=== PATIENT | female | born 1980 | race Caucasian/White ===

== ENCOUNTER 2019-02-06 10:08 | Emergency (ER) | payer OTHER, SELFPAY ==
[2019-02-06 10:13] VITALS: BP 113/64; PULSE 87; RESP 16; TEMP 36.5; O2SAT 97; BMI 23.3
[2019-02-06 11:11] VITALS: BP 107/88; PULSE 77; RESP 18; O2SAT 98
[2019-02-06] MEDS: SODIUM CHLORIDE 0.9% 1,000 ML 1000 ML IV ×2 (11:12→12:07)
[2019-02-06] MEDS: ONDANSETRON 4 MG/2 ML INJ IV ×2 (11:12→12:01)
[2019-02-06 11:34] LABS: Add Manual Diff / Slide Review NO; Basophils Absolute Auto 0 /uL (0-100); Basophils Percent Auto 0.4 % (0-2); Eosinophils Absolute Auto 0 /uL (0-450); Hematocrit 38.2 % (36-46); Lymphocytes Absolute Auto 500 /uL (1100-4500); Lymphocytes Percent Auto 4.3 % (25-40); Mean Corpuscular HGB Conc 34.1 % (30-36); Mean Corpuscular Hemoglobin 30.9 PG (26-34); Mean Corpuscular Volume 90.7 fL (80-100); Monocytes Absolute Auto 600 /uL (0-900); Monocytes Percent Auto 4.5 % (3-14); Neutrophils Absolute Auto 11600 /uL (1500-7000); Neutrophils Percent Auto 90.8 % (50-75); Platelet Count 263 X10^3/uL (150-400); Red Blood Cell Count 4.21 X10^6/uL (4.0-5.2); Red Cell Distribution Width 12.4 % (11.6-14.8); White Blood Cell Count 12.7 X10^3/uL (4.5-11.0)
[2019-02-06 11:45] LABS: Alanine Aminotransferase 18 IU/L (9-52); Albumin Globulin Ratio 1.5 (1.0-2.8); Alkaline Phosphatase 38 U/L (38-126); Aspartate Aminotransferase 18 IU/L (14-36); Blood Urea Nitrogen 14 mg/dL (7-17); Calcium 8.4 mg/dL (8.4-10.2); Carbon Dioxide 28 mmol/L (22-32); Chloride 100 mmol/L (98-107); Estimated Glomerular Filt Rate > 60.0 mL/min (>60); Globulin 2.7 g/dL (1.7-4.1); Glucose 102 mg/dL (70-100); HEMOLYSIS < 15 (0-50); Lipase 38 U/L (23-300); Potassium 3.2 mmol/L (3.4-5.1); Sodium 138 mmol/L (137-145); Total Protein 6.7 g/dL (6.3-8.2)
--- NOTE | 2019-02-06 11:47 | ED_ITS ---
HPI - Nausea/Vomiting/Diarrhea <Mack OlveraMarineSuirnderjessy [facility] - Last Filed: 02/06/19 23:42> General Chief complaint: Nausea/Vomiting/Diarrhea Stated complaint: Vomiting for 12 hours straight Time Seen by Provider: 02/06/19 11:31 Source: patient Mode of arrival: ambulatory Limitations: no limitations History of Present Illness HPI Narrative: This is a 38-year-old female, nonsmoker, who presents with multiple and frequent non bloody, bilious emesis since 10:00 p.m. last night with several episodes of diarrhea since 3:00 a.m. She reports the nausea and vomiting water so severe that she was unable to tolerate fluids given in small amounts. She felt dehydrated and and complains of headache and had voided once his the onset of the diarrhea and vomiting. She reports her legs are feeling heavy. She also had chills but no fever. She reports the symptoms started 30 minutes after eating salmon dinner and raw blue cheese. She always had sensitive stomach and other family members are okay. She traveled to [place] about 2 months ago but did not get sick after hours and she denies using recent antibiotic medications. Her last LMP was 2 weeks ago and reports very highly unlikely she is . Related Data Home Medications Medication Instructions Recorded Confirmed PNV cmb#95-ferrous fumarate-FA 1 tab PO DAILY 02/06/19 02/06/19 [] albuterol sulfate 1 puff INHALATION PRN PRN 02/06/19 02/06/19 Previous Rx's Medication Instructions Recorded ondansetron 4 mg PO Q4H PRN #14 tab 02/06/19 Allergies Allergy/AdvReac Type Severity Reaction Status Date / Time No Known Drug Allergies Allergy Verified 02/06/19 10:13 Review of Systems <Mack OlveraMarineSurinderjessy [facility] - Last Filed: 02/06/19 23:42> Review of Systems General: See HPI HEENT: Denies sinus pain, ear pain, sore throat, difficulty swallowing, dizziness. Respiratory: Denies dyspnea, cough, wheezing, hemoptysis, sputum. Cardiovascular: Denies chest pain, palpitations, orthopnea, edema. Gastrointestinal: See HPI : Denies dysuria, frequency, incontinence, hematuria, urinary retention. Musculoskeletal: Denies weakness, joint pain or bony pain. Skin: Denies rash, skin lesions, or other. Neurologic: Reports leg heaviness. Denies weakness, headache, numbness, change in speech, confusion, seizures, incoordination. Psychiatric: No concerning psychosocial issues. 12-point review of systems is negative except for those stated above. PFSH <VINICIO Fraser - Last Filed: 02/06/19 23:42> Social History Smoking Status: Never smoker Social History (Updated 02/06/19 @ 23:24 by VINICIO Fraser) Smoking Status: Never smoker alcohol intake: current substance use type: does not use Exam <VINICIO Fraser - Last Filed: 02/06/19 23:42> Narrative Exam Narrative: GEN: Alert, oriented x 3, well appearing and nourished, and in no acute distress. Head: Normal cephalic, atraumatic. No scalp or temporal tenderness, palpable mass or rash. EYES: Pupils are equal, round, and reactive to light and accommodation. Extraocular muscles are intact bilaterally. There is no subconjunctival hemorrhage, exudate and sclera non-icteric. ENT: Nose without bleeding, purulent discharge. Mucous membrane dry, no mucosal lesion. Throat without erythema, tonsillar hypertrophy or exudate. Uvula in midline, airway patent. Neck: Trachea in midline. No JVD, non-tender without lymphadenopathy. No masses or thyroid megaly. Supple, non-tender and no meningeal signs. CARDIAC: Normal regular rate and rhythm without murmurs, gallops, or rubs. No chest wall tenderness. No peripheral edema, cyanosis or pallor. Capillary refill is less than 2 seconds. RESPIRATORY: Lungs are cleat to auscultate bilaterally. No cough, wheezes, rales, or rhonchi. No stridor, respiratory distress, increase work of breathing, or accessary muscle used. ABD: Abdomen soft, tender to palpate in mid upper abdomen and LLQ and non- distended. No guarding or rebound tenderness to palpate. Bowel sounds are normal in all 4 quadrants. There is no palpable masses or organomegaly. EXT: Full painless ROM of all extremities with no loss of sensation, strength, effusion or edema. SKIN: Warm, dry, normal color for patient. No erythema, lesions or rash. BACK: Nontender without deformity or crepitance. No flank tenderness. NEUROLOGICAL: Alert and oriented to place, time and person. Sensation and motor function intact bilaterally. No facial droops, dysphasia. PSYCHIATRIC: Good judgement and reason, without hallucinations, abnormal affect or abnormal behaviors during the examination. Initial Vital Signs Initial Vital Signs: Vital Signs Temperature 97.7 F 02/06/19 10:13 Pulse Rate 87 02/06/19 10:13 Respiratory Rate 16 02/06/19 10:13 Blood Pressure 113/64 02/06/19 10:13 Pulse Oximetry 97 02/06/19 10:13 <Oxana Cristobal DO - Last Filed: 02/08/19 18:01> Initial Vital Signs Initial Vital Signs: Vital Signs Temperature 97.7 F 02/06/19 10:13 Pulse Rate 87 02/06/19 10:13 Respiratory Rate 16 02/06/19 10:13 Blood Pressure 113/64 02/06/19 10:13 Pulse Oximetry 97 02/06/19 10:13 Course <VINICIO Fraser - Last Filed: 02/06/19 23:42> Orders Ordered: Discontinued Medications Sodium Chloride (Normal Saline 0.9%) 1,000 mls @ 1,000 mls/hr IV BOLUS ONE Stop: 02/06/19 11:53 Last Infusion: 02/06/19 12:07 Dose: 0 mls/hr Admin: 02/06/19 11:12 Dose: 1,000 mls/hr Sodium Chloride (Normal Saline 0.9%) 1,000 mls @ 1,000 mls/hr IV BOLUS ONE Stop: 02/06/19 12:45 Last Infusion: 02/06/19 13:31 Dose: 0 mls/hr Admin: 02/06/19 12:07 Dose: 1,000 mls/hr Ketorolac Tromethamine (Toradol) 30 mg IV NOW ONE Stop: 02/06/19 11:48 Last Admin: 02/06/19 12:00 Dose: 30 mg Ondansetron HCl (Zofran) 4 mg IV NOW ONE Stop: 02/06/19 10:55 Last Admin: 02/06/19 11:12 Dose: 4 mg Ondansetron HCl (Zofran) 4 mg IV NOW ONE Stop: 02/06/19 11:47 Last Admin: 02/06/19 12:01 Dose: 4 mg Pantoprazole Sodium (Protonix) 40 mg IV NOW ONE Stop: 02/06/19 11:48 Last Admin: 02/06/19 12:01 Dose: 40 mg Potassium Chloride (Klor-Con M20) 40 meq PO NOW ONE Stop: 02/06/19 11:48 Last Admin: 02/06/19 14:18 Dose: 40 meq Potassium Chloride (Potassium Chloride) 40 meq PO NOW ONE Stop: 02/06/19 14:42 Last Admin: 02/06/19 14:44 Dose: 40 meq Vital Signs - 8 hr 02/06/19 10:13 02/06/19 11:11 02/06/19 12:10 Temperature 97.7 F Pulse Rate 87 77 70 Respiratory Rate 16 18 17 Blood Pressure 113/64 Blood Pressure [Right Arm] 107/88 106/60 Pulse Oximetry 97 98 02/06/19 13:54 Temperature Pulse Rate 82 Respiratory Rate 16 Blood Pressure Blood Pressure [Right Arm] 102/60 Pulse Oximetry 98 <Oxana Cristobal DO - Last Filed: 02/08/19 18:01> Orders Ordered: Discontinued Medications Sodium Chloride (Normal Saline 0.9%) 1,000 mls @ 1,000 mls/hr IV BOLUS ONE Stop: 02/06/19 11:53 Last Infusion: 02/06/19 12:07 Dose: 0 mls/hr Admin: 02/06/19 11:12 Dose: 1,000 mls/hr Sodium Chloride (Normal Saline 0.9%) 1,000 mls @ 1,000 mls/hr IV BOLUS ONE Stop: 02/06/19 12:45 Last Infusion: 02/06/19 13:31 Dose: 0 mls/hr Admin: 02/06/19 12:07 Dose: 1,000 mls/hr Ketorolac Tromethamine (Toradol) 30 mg IV NOW ONE Stop: 02/06/19 11:48 Last Admin: 02/06/19 12:00 Dose: 30 mg Ondansetron HCl (Zofran) 4 mg IV NOW ONE Stop: 02/06/19 10:55 Last Admin: 02/06/19 11:12 Dose: 4 mg Ondansetron HCl (Zofran) 4 mg IV NOW ONE Stop: 02/06/19 11:47 Last Admin: 02/06/19 12:01 Dose: 4 mg Pantoprazole Sodium (Protonix) 40 mg IV NOW ONE Stop: 02/06/19 11:48 Last Admin: 02/06/19 12:01 Dose: 40 mg Potassium Chloride (Klor-Con M20) 40 meq PO NOW ONE Stop: 02/06/19 11:48 Last Admin: 02/06/19 14:18 Dose: 40 meq Potassium Chloride (Potassium Chloride) 40 meq PO NOW ONE Stop: 02/06/19 14:42 Last Admin: 02/06/19 14:44 Dose: 40 meq Vital Signs - 8 hr 02/06/19 10:13 02/06/19 11:11 02/06/19 12:10 Temperature 97.7 F Pulse Rate 87 77 70 Respiratory Rate 16 18 17 Blood Pressure 113/64 Blood Pressure [Right Arm] 107/88 106/60 Pulse Oximetry 97 98 02/06/19 13:54 Temperature Pulse Rate 82 Respiratory Rate 16 Blood Pressure Blood Pressure [Right Arm] 102/60 Pulse Oximetry 98 MDM - Nausea/Vomiting/Diarrhea <Mack VINICIO Longoria - Last Filed: 02/06/19 23:42> Differential Diagnosis Likely food poisoning, gastroenteritis, dehydration and other (hypokalemai) Medical Records Attestation: I reviewed the patient's medical records. Lab Data Attestation: I reviewed the patient's lab results. Result diagrams: 02/06/19 11:25 02/06/19 11:25 Lab Results 02/06/19 02/06/19 02/06/19 Range/Units 11:25 11:25 11:25 WBC 12.7 H (4.5-11.0) X10^3/uL RBC 4.21 (4.0-5.2) X10^6/uL Hgb 13.0 (12.0-16.0) g/dL Hct 38.2 (36-46) % MCV 90.7 (80-100) fL MCH 30.9 (26-34) PG MCHC 34.1 (30-36) % RDW 12.4 (11.6-14.8) % Plt Count 263 (150-400) X10^3/uL Neut % (Auto) 90.8 H (50-75) % Lymph % (Auto) 4.3 L (25-40) % Hardeman % (Auto) 4.5 (3-14) % Eos % (Auto) 0.0 L (2-4) % Baso % (Auto) 0.4 (0-2) % Neut # (Auto) 48697 H (4363-1721) /uL Lymph # (Auto) 500 L (5052-8449) /uL Hardeman # (Auto) 600 (0-900) /uL Eos # (Auto) 0 (0-450) /uL Baso # (Auto) 0 (0-100) /uL PT 10.9 (10.1-12.7) SECONDS INR 0.9 (0.9-1.3) APTT 26 L (26.4-36.2) SECONDS Sodium 138 (137-145) mmol/L Potassium 3.2 L (3.4-5.1) mmol/L Chloride 100 (98-107) mmol/L Carbon Dioxide 28 (22-32) mmol/L BUN 14 (7-17) mg/dL Creatinine 0.40 L (0.52-1.04) mg/dL Estimated GFR > 60.0 (>60) mL/min BUN/Creatinine Ratio 35.0 H (6-22) Glucose 102 H (70-100) mg/dL Calcium 8.4 (8.4-10.2) mg/dL Total Bilirubin 1.0 (0.2-1.3) mg/dL AST 18 (14-36) IU/L ALT 18 (9-52) IU/L Alkaline Phosphatase 38 (38-126) U/L Total Protein 6.7 (6.3-8.2) g/dL Albumin 4.0 (3.5-5.0) g/dL Globulin 2.7 (1.7-4.1) g/dL Albumin/Globulin Ratio 1.5 (1.0-2.8) Lipase 38 (23-300) U/L [facility] Narrative Medical decision making narrative: This is a 38-year-old female who presents to ED with multiple episodes of vomiting and several episodes of diarrhea which started at 10:00 p.m. last night after she had salmon for dinner and rale blue cheese. She denies fever but had chills all night. She reports feel dehydrated complaining of headache and heaviness in her legs and generalized body aches. She denies blood in stool or vomit. She reports bilious vomit. Her abdomen was tender to palpate in mid upper and left lower quadrant. She reports had last LMP 2 weeks ago and is not . The patient was rehydrated with 2 L of normal saline, medicated with 2 doses of 4 mg IV Zofran for nausea, she was medicated with pantoprazole 40 mg IV for abdominal discomfort from excessive vomiting, and Ketoralac 30 mg IV was administered for generalized body aches. Mild elevated WBC is 12.7 and neutrophil as 90.8. CMP showed some mild hypokalemia at 3.2, elevated BUN/creatinine ratio at 35 with normal LFTs and lipase. The patient was able to tolerate liquid potassium chloride 40 mEq prior to DC to home along small sips of clear liquids. Patient was DC to home with Zofran for as needed nausea and vomiting. The patient was advised to rehydrate herself with small sips of clear liquid and to advance to bland diet as she tolerates. The findings were discussed and return precautions were reviewed with patient. No further questions expressed by patient. <Oxana Cristobal, DO - Last Filed: 02/08/19 18:01> Lab Data Lab Results 02/06/19 02/06/19 02/06/19 Range/Units 11:25 11:25 11:25 WBC 12.7 H (4.5-11.0) X10^3/uL RBC 4.21 (4.0-5.2) X10^6/uL Hgb 13.0 (12.0-16.0) g/dL Hct 38.2 (36-46) % MCV 90.7 (80-100) fL MCH 30.9 (26-34) PG MCHC 34.1 (30-36) % RDW 12.4 (11.6-14.8) % Plt Count 263 (150-400) X10^3/uL Neut % (Auto) 90.8 H (50-75) % Lymph % (Auto) 4.3 L (25-40) % Hardeman % (Auto) 4.5 (3-14) % Eos % (Auto) 0.0 L (2-4) % Baso % (Auto) 0.4 (0-2) % Neut # (Auto) 97641 H (5172-6872) /uL Lymph # (Auto) 500 L (7589-1515) /uL Hardeman # (Auto) 600 (0-900) /uL Eos # (Auto) 0 (0-450) /uL Baso # (Auto) 0 (0-100) /uL PT 10.9 (10.1-12.7) SECONDS INR 0.9 (0.9-1.3) APTT 26 L (26.4-36.2) SECONDS Sodium 138 (137-145) mmol/L Potassium 3.2 L (3.4-5.1) mmol/L Chloride 100 (98-107) mmol/L Carbon Dioxide 28 (22-32) mmol/L BUN 14 (7-17) mg/dL Creatinine 0.40 L (0.52-1.04) mg/dL Estimated GFR > 60.0 (>60) mL/min BUN/Creatinine Ratio 35.0 H (6-22) Glucose 102 H (70-100) mg/dL Calcium 8.4 (8.4-10.2) mg/dL Total Bilirubin 1.0 (0.2-1.3) mg/dL AST 18 (14-36) IU/L ALT 18 (9-52) IU/L Alkaline Phosphatase 38 (38-126) U/L Total Protein 6.7 (6.3-8.2) g/dL Albumin 4.0 (3.5-5.0) g/dL Globulin 2.7 (1.7-4.1) g/dL Albumin/Globulin Ratio 1.5 (1.0-2.8) Lipase 38 (23-300) U/L Discharge Plan Departure Patient Disposition: Home Clinical Impression: Nausea vomiting and diarrhea Food poisoning Qualifiers: Encounter type: initial encounter Injury intent: accidental or unintentional Qualified Code(s): T62.91XA - Toxic effect of unspecified noxious substance eaten as food, accidental (unintentional), initial encounter Discharge Date/Time: 02/06/19 15:01 Interventions: ED Discharge Assessment Last Done: 02/06/19 15:00 Instructions: DI for Dehydration -- Adult, DI for Hypokalemia, DI for Vomiting -- Adult Activity Restrictions/Additional Instructions: You have been diagnosed with [vomiting and diarrhea, hypokalemia, dehydration from excessive fluid loss from vomiting and diarrhea. Your lab tests shows mildly decreased in potassium level today. This may cause muscle weakness that you are feeling in her legs. We are replacing potassium while here in ED. Please hydrate herself with small amounts of clear liquid when you're nausea is better. He can take Zofran as needed for nausea and vomiting. When you're able to tolerate clear liquids for at least 12 hours, he can advance her diet as BRAT or bland]. What to do: *Take your medications as directed. *Follow up with your primary care provider in 2-3 days, call for an appointment. Let them know you were seen in the ED and that we asked you to be seen in follow up. *Return to ED if you have any new, worsening, or concerning symptoms, such as [severe abdominal pain, feeling dehydrated, unable to tolerate fluid, continue with excessive diarrhea, fever, chills, chest pain, difficulty breathing, any acute concerns]. Prescriptions: New ondansetron 4 mg tablet,disintegrating 4 mg PO Q4H PRN (Reason: nausea and vomiting) Qty: 14 RF: 0 No Action albuterol sulfate 90 mcg/actuation Hfa Aerosol Inhaler 1 puff INHALATION PRN PRN (Reason: Shortness Of Breath) RF: 0 PNV cmb#95-ferrous fumarate-FA [] 28 mg iron- 800 mcg Tablet 1 tab PO DAILY RF: 0 <Oxana Cristobal DO - Last Filed: 02/08/19 18:01> [facility] ED Attending Kevinature Attestation: I was immediately available in the department for consultation. This documentation has been reviewed and I agree with assessment and plan. Supervised by Oxana Cristobal DO
[2019-02-06] MEDS: KETOROLAC 60 MG/2 ML VIAL 30 MG IV (12:00)
[2019-02-06] MEDS: PANTOPRAZOLE 40 MG VIAL IV (12:01)
[2019-02-06 12:06] LABS: INR 0.9 (0.9-1.3); Prothrombin Time 10.9 SECONDS (10.1-12.7)
[2019-02-06 12:09] LABS: PTT Partial Thromboplastin Tim 26 SECONDS (26.4-36.2)
[2019-02-06 12:10] VITALS: BP 106/60; PULSE 70; RESP 17
[2019-02-06 13:54] VITALS: BP 102/60; PULSE 82; RESP 16; O2SAT 98
[2019-02-06] MEDS: POTASSIUM CHLORIDE 20 MEQ TAB 40 MEQ PO (14:18)
[2019-02-06] MEDS: POTASSIUM CHLORIDE 20 MEQ/15 ML UDC 40 MEQ PO (14:44)
[2019-02-06 14:59] VITALS: BP 107/78; PULSE 68; RESP 16; O2SAT 98
== END 2019-02-06 15:01 | disposition home or self-care (01) ==
PROVIDERS: Emergency Medicine; Emergency Provider Nurse Practitioner Family
DX: T62.91XA Toxic effect of unspecified noxious substance eaten as food, accidental (unintentional), initial encounter (principal); R11.2 Nausea with vomiting, unspecified; R19.7 Diarrhea, unspecified
CPT/HCPCS: 36415; 80053; 83690; 85025; 85610; 85730; 93005; 96361; 96374; 96375; 96376; 99283; 99284; C9113; J1885; J2405